=== PATIENT | female | born 1995 | race Caucasian/White ===

== ENCOUNTER 2018-06-17 22:59 | Emergency (ER) | payer OTHER, MEDICAID ==
[2018-06-18] MEDS: HYDROCODONE/APAP (5/325) TAB PO (00:27)
[2018-06-18] MEDS: IBUPROFEN 600 MG TAB PO (00:28)
[2018-06-18] MEDS ORDERED: CLINDAMYCIN 600 MG INJ IM (01:30)
[2018-06-18] MEDS: CLINDAMYCIN 300 MG INJ IM (01:43)
== END 2018-06-18 01:52 | disposition home or self-care (01) ==
LOC: FTE 22:59
DX: S90.31XA Contusion of right foot, initial encounter (principal); L03.031 Cellulitis of right toe; F17.210 Nicotine dependence, cigarettes, uncomplicated; V03.10XA Pedestrian on foot injured in collision with car, pick-up truck or van in traffic accident, initial encounter
CPT/HCPCS: 73630; 96372; 99284-25